=== PATIENT | female | born 1975 ===

== ENCOUNTER 2019-07-13 15:42 | Day surgery (SDC) | payer OTHER ==
[2019-07-13 17:25] LABS: ADD MAN DIFF? NO
[2019-07-13 17:28] LABS: WHITE BLOOD COUNT 7.1 10^3/ul (4.8-10.8)
[2019-07-13 17:28] LABS: BASOPHIL # 0.1 10^3/ul (0.0-0.1); EOSINOPHILS # 0.3 10^3/ul (0.0-0.5); EOSINOPHILS % 3.5 % (0.0-7.0); HEMATOCRIT 38.6 % (37.0-47.0); HEMOGLOBIN 12.8 g/dl (12.0-16.0); LYMPHOCYTES # 2.9 10^3/ul (0.8-2.9); LYMPHOCYTES % 40.6 % (15.0-51.0); MEAN CORPUSCULAR HEMOGLOBIN 32.1 pg (29.0-33.0); MEAN CORPUSCULAR HGB CONC 33.2 g/dl (32.0-37.0); MEAN CORPUSCULAR VOLUME 96.7 fl (82.0-101.0); MEAN PLATELET VOLUME 8.4 fl (7.4-10.4); MONOCYTE # 0.7 10^3/ul (0.3-0.9); MONOCYTES % 10.4 % (0.0-11.0); NEUTROPHIL # 3.1 10^3/ul (1.6-7.5); NEUTROPHILS % 44.4 % (39.0-77.0); PLATELET COUNT 226 10^3/UL (140-415); RED BLOOD COUNT 3.99 10^6/ul (4.20-5.40); RED CELL DISTRIBUTION WIDTH 12.6 % (11.5-14.5)
[2019-07-13 17:47] LABS: INR 0.95; PROTIME 12.8 Sec (11.9-14.9)
[2019-07-13 17:48] LABS: PARTIAL THROMBOPLASTIN TIME 28.3 Sec (23.0-35.0)
[2019-07-13 17:53] LABS: ANION GAP 6 (5-13); BLOOD UREA NITROGEN 13 mg/dl (7-20); CALCIUM 8.6 mg/dl (8.4-10.2); CARBON DIOXIDE 30 mmol/L (21-31); CHLORIDE 103 mmol/L (97-110); Estimated GFR > 60 mL/min (>60); GLUCOSE 93 mg/dl (70-220); POTASSIUM 3.7 mmol/L (3.5-5.1); SODIUM 139 mmol/L (135-144)
[2019-07-13] MEDS ORDERED: FENTAnyl 50 MCG/ML VIAL IV (18:30)
[2019-07-13] MEDS ORDERED: ONDANSETRON 4 MG INJ IV (18:30)
[2019-07-13] MEDS ORDERED: MEPERIDINE 25 MG INJ IV (18:30)
[2019-07-13] MEDS ORDERED: DIPHENHYDRAMINE 50 MG INJ IV (18:30)
[2019-07-13] MEDS ORDERED: MIDAZOLAM 1 MG/ML 2 ML INJ ×2 (18:31→18:34)
[2019-07-13] MEDS ORDERED: KETAMINE (50 MG/ML) 10 ML VIAL (18:31)
[2019-07-13] MEDS: BUPIVACAINE 0.5% (SDV) 30 ML INJ (18:39)
[2019-07-13] MEDS ORDERED: CLINDAMYCIN 600 MG/D5W (PMX) 50 ML IVPB (18:43)
== END 2019-07-13 20:20 | disposition home or self-care (01) ==
LOC: SDS 15:42
DX: G56.01 Carpal tunnel syndrome, right upper limb (principal)
CPT/HCPCS: 64721; 71045; 80048; 85025; 85610; 85730; 93005